=== PATIENT | female | born 1965 | race African-American/Black ===

== ENCOUNTER 2018-12-12 14:08 | Inpatient (IN) | payer OTHER ==
[2018-12-12 14:14] VITALS: BMI 24.4
--- NOTE | 2018-12-12 14:15 | PDOC ---
Rapid Medical Evaluation Time Seen by Provider: 12/12/18 14:11 Medical Evaluation: 12/12/18 14:11 CC: dizziness with headache x5 days. Pmhx- 3 CVA- denies residuals PE: left facial weakness Orders: stroke w/u Patient will proceed to ER for continued evaluation. Discharge Disposition - Diagnosis Dizziness - Referrals - Patient Instructions - Post Discharge Activity
--- NOTE | 2018-12-12 15:29 | PDOC ---
Attending Attestation - Resident Resident Name: Caden Villegas - ED Attending Attestation I have performed the following: I have examined & evaluated the patient, The case was reviewed & discussed with the resident, I agree w/resident's findings & plan, Exceptions are as noted - HPI HPI: 12/12/18 16:21 Her SC Jordan Martinez is a 53-year-old female history of prior CVA with residual left-sided weakness and migraine history here today complaining of a severe left -sided headache is also complaining of vertigo patient states that her vertigo started 5 days ago initially thought it was improved but then came back she states her symptoms are worse with turning and moving her head describes a room spinning sensation denies any nausea or vomiting no ringing no changes to her weakness which she feels is old from her prior stroke. She does report feeling generalized more fatigued and in addition feels that her speech was somewhat slurred over the last weekend 3 days prior to arrival since then her speech has improved denies any chest pain no shortness of breath no fevers no chills - Physicial Exam PE: 12/12/18 16:23 Awake alert no acute distress lungs are clear bilaterally heart is regular without any murmurs rubs or gallops abdomen is soft and nontender extremities are warm well perfused neurological strength is 4 out of 5 left upper extremity 4-5 left lower extremity right upper and lower is 5 out of 5. On my exam patient's facies are symmetric sensation is intact in her face. Sensation is mildly reduced on the left side. Speech is clear visual marcelino are intact cerebellar exam [id number] is normal alternating hand movements are normal [id number] is normal gait is normal negative Romberg patient has a positive John-Hallpike to the left with noted horizontal nystagmus. Skin is warm and dry no rash - Medical Decision Making 12/12/18 16:23 53-year-old female history of previous CVA migraines here today complaining of headache and vertigo and slurred speech with resolution of her speech difficulty. Differential includes posterior or cerebellar CVA bleed atypical migraine elect light abnormalities infection anemia plan CT head labs CBC CMP troponin EKG. We will treat her vertigo with meclizine and IV fluids was given Reglan and Tylenol for her headache. If CT is negative patient will require admission for an MRI due to her high risk with prior strokes for cell Altagracia pathology. Will consult neurology and admit patient to telemetry telemetry rule out CVA Heart Score/ECG Review #1 General ECG Interpretation: Sinus Rhythm, Normal Rate (73), Normal Intervals, No acute ischemic changes
[2018-12-12 15:40] LABS: BASO % 1.1 % (0-2.0); EOS % 0.8 % (0-4.5); HEMATOCRIT 36.1 % (32.4-45.2); HEMOGLOBIN 11.4 GM/dL (10.7-15.3); LYMPH % 41.7 % (8-40); MCH 25.3 pg (25.7-33.7); MCHC 31.5 g/dl (32.0-36.0); MEAN CELL VOLUME 80.3 fl (80-96); MEAN PLT VOLUME 9.2 fl (7.5-11.1); MONO % 7.8 % (3.8-10.2); NEUT % 48.6 % (42.8-82.8); PLATELET COUNT 289 K/MM3 (134-434); RDW 16.7 % (11.6-15.6); WHITE BLOOD COUNT 4.7 K/mm3 (4.0-10.0)
--- NOTE | 2018-12-12 15:59 | PDOC ---
History of Present Illness - General Chief Complaint: Headache Stated Complaint: R/O CVA/TIA Time Seen by Provider: 12/12/18 14:11 History Source: Patient Exam Limitations: No Limitations - History of Present Illness Initial Comments: 12/12/18 15:56 Kacey Sandy is a 53F with PMH 3x CVA (1999, 2000, 2005) and multiple TIA c /b residual L-sided weakness and not on AC 2/2 patient preference and chronic migraines not on medication presenting with 5 days of vertigo and weakness with migraine. Patient reports that for last 5 days has had room-spinning dizziness, difficulty speaking, and weakness that has progressively gotten worse, thought she simply had vertigo but then was experiencing leg weakness and difficulty walking, went to urgent care today and was referred to ED for further evaluation. Has had 3x CVA with multiple TIA in the past, confirms residual L- sided weakness in arm and leg, sometimes uses a cane to aid in walking. Not on AC because patient does not routinely take it. Says that dizziness is not something that happens to her often, presentation is unlike prior TIA/CVA and is not a typical symptom from her migraines. Has chronic history of migraines, does not take medications, once was put on triptan but caused her to have another stroke, usually just sits in the dark and waits for them to resolve. Has CARSON today consistent with previous migraines, says pain is 20/10, some light sensitivity. Denies chest pain, SOB, nausea/vomiting, abd pain, urinary sx, C/D. Past History - Past Medical History Allergies/Adverse Reactions: Allergies Allergy/AdvReac Type Severity Reaction Status Date / Time No Known Allergies Allergy Verified 12/12/18 14:14 CVA: Yes (x2 left side deficit) COPD: No - Psycho Social/Smoking Cessation Hx Smoking History: Never smoked Information on smoking cessation initiated: No Hx Alcohol Use: No Drug/Substance Use Hx: No Review of Systems - Review of Systems Able to Perform ROS?: Yes Constitutional: No: Symptoms Reported HEENTM: No: Blurred Vision, Recent change in vision, Hearing Loss, Difficulty Swallowing Respiratory: No: Cough, Shortness of Breath Cardiac (ROS): No: Chest Pain, Irregular Heart Rate, Lightheadedness, Palpitations, Syncope ABD/GI: No: Constipated, Diarrhea, Nausea, Vomiting : No: Symptoms Reported Musculoskeletal: No: Symptoms Reported Integumentary: No: Symptoms Reported Neurological: Yes: Headache, Numbness (chronic, L side), Weakness, Unsteady Gait , Dizziness. No: Seizure, Tingling, Tremors Endocrine: No: Symptoms Reported Hematologic/Lymphatic: No: Symptoms Reported All Other Systems: Reviewed and Negative *Physical Exam - Vital Signs Last Vital Signs Temp Pulse Resp BP Pulse Ox 99 F 86 18 129/57 L 100 12/12/18 14:12 12/12/18 14:12 12/12/18 14:12 12/12/18 14:12 12/12/18 14:12 - Physical Exam Comments: 12/12/18 16:58 Neurological Exam: Alert/Oriented x3 CN: - decreased sensation to L face - remaining CN grossly normal HEENT: - TMs clear bilaterally Sensation: - decreased to LUE/LLE compared to RUE/RLE - Romberg negative Motor: - 4/5 strength on L side compared to 5/5 strength on R side Reflexes: - patellar reflex intact bilaterally Cerebellar: - finger/nose normal with some cognitive processing delay - heel/red normal - no dysdiadochokinesia - gait grossly normal, unable to toe walk General Appearance: Yes: Nourished, Appropriately Dressed. No: Apparent Distress HEENT: positive: EOMI, HAIM, Normal Voice, Symmetrical, Pharynx Normal, Hearing Grossly Normal. negative: Scleral Icterus (R), Scleral Icterus (L), Muffled/ Hoarse voice Neck: positive: Trachea midline, Supple. negative: Tender, Lymphadenopathy (R) , Lymphadenopathy (L) Respiratory/Chest: positive: Lungs Clear, Normal Breath Sounds. negative: Chest Tender, Respiratory Distress, Accessory Muscle Use, Crackles, Rales, Rhonchi, Stridor, Wheezing, Hyperresonant Cardiovascular: positive: Regular Rhythm, Regular Rate. negative: Murmur Gastrointestinal/Abdominal: positive: Normal Bowel Sounds, Flat, Soft. negative : Tender, Guarding, Rebound Musculoskeletal: positive: Normal Inspection. negative: CVA Tenderness Extremity: positive: Normal Capillary Refill, Normal Inspection, Normal Range of Motion. 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, Fully Oriented, Alert, Normal Mood/ Affect, Normal Response ED Treatment Course - LABORATORY CBC & Chemistry Diagram: 12/12/18 15:00 12/12/18 15:00 - ADDITIONAL ORDERS Additional order review: 12/12/18 15:00 RBC 4.50 MCV 80.3 MCHC 31.5 L RDW 16.7 H MPV 9.2 Neutrophils % 48.6 Lymphocytes % 41.7 H Monocytes % 7.8 Eosinophils % 0.8 Basophils % 1.1 Medical Decision Making - Medical Decision Making 12/12/18 15:56 Kacey Sandy is a 53F with PMH 3x CVA (1999, 2000, 2005) and multiple TIA c /b residual L-sided weakness and not on AC 2/2 patient preference and chronic migraines not on medication presenting with 5 days of vertigo and weakness with migraine. Patient has known history of CVA and TIA and is not on AC. Presents today with numbness and weakness to left face/arm/leg which patient says is consistent with prior deficits, NIHSS 3 for L arm/leg drift and sensory deficit, but no prior NIHSS on record. High concern for posterior CVA given dizziness vs. repeat R MCA CVA vs. Kurtz Palsy vs. complex migraine. Unclear why patient has so many CVA, no cardiac history, no arrhythmia notable on exam. Will need inpatient admission for further neuro evaluation of dizziness, recommend cardiac ECHO for PFO vs. eval for underlying hypercoagulable hematologic disorder. Evaluated via: CMP CBC CP serum preg coags ECG CXR CT head Giving 4mg reglan, 1L NS IVF, 1g Ofirmev for CARSON control. ECG shows NSR with HR 73, QRS 76, QTc 431. CT scan obtained by triage for r/o CVA, report negative for CVA. No acute pathology on CXR. 12/12/18 16:52 Discussed case with isabel Crook to be admitted to stroke/tele for further cardiac/stroke r/o. Admitting Dr. Moreau to evaluate for neurology consult need. Discharge - Discharge Information Problems reviewed: Yes Clinical Impression/Diagnosis: Dizziness Condition: Stable - Admission Yes - Follow up/Referral - Patient Discharge Instructions - Post Discharge Activity NIH Stroke Scale - Last Known Well Date/Time & Onset Date Last Known Well: 12/07/18 Time Last Known Well: 00:00 - Initial Evaluation Level of consciousness: Alert Ask patient the month and their age: Answers both correctly Ask patient to open & close eyes; make fist and let go: Obeys both correctly Best gaze (horizontal eye movement): Normal Visual field testing: No visual field loss Facial paresis (Show teeth/raise eyebrows/close eyes tight): Normal symmetrical movement Motor Function: Left Arm: Drift Motor Function: Right Arm: Normal (extends arm 90 (or 45) degrees for 10 seconds without drift Motor Function: Left Leg: Drift Motor Function: Right Leg: Normal (extends leg 30 degrees for 5 seconds without drift) Limb Ataxia: No ataxia Sensory(Use pinprick test arms,legs,trunk,face/side to side): Mild to moderate decrease in sensation (L-sided) Best language (Describe picture, name items, read sentences): No Aphasia Dysarthria (read several words): Normal articulation Extinction and Inattention: No abnormality - Total Score NIH Stroke Scale Score: 3
[2018-12-12 16:04] LABS: ALBUMIN 3.9 g/dl (3.4-5.0); BILIRUBIN,TOTAL 0.6 mg/dL (0.2-1); CALCIUM 9.3 mg/dL (8.5-10.1); CREATININE 0.6 mg/dL (0.55-1.3); POTASSIUM 4.1 mmol/L (3.5-5.1); TOT PROT 7.4 g/dl (6.4-8.2)
[2018-12-12] MEDS ORDERED: MECLIZINE HCL 25 MG TABLET (FP) PO ONE (16:19)
[2018-12-12] MEDS ORDERED: SODIUM CHLORIDE 1,000 ML IV STA (16:21)
[2018-12-12] MEDS ORDERED: ACETAMINOPHEN 1000 MG/100 ML VIAL (NON FORMULARY) IVPB ONE (16:21)
[2018-12-12] MEDS ORDERED: METOCLOPRAMIDE HCL INJECTION 10 MG/2 ML VIAL IVPB ONE (16:21)
[2018-12-12] MEDS ORDERED: METOCLOPRAMIDE HCL INJECTION 10 MG/2 ML VIAL ONE (16:25)
[2018-12-12] MEDS ORDERED: MECLIZINE HCL 25 MG TABLET (FP) ONE (16:26)
[2018-12-12] MEDS ORDERED: ACETAMINOPHEN INJECTION 100 ML IVPB ONE (16:26)
[2018-12-12 16:38] LABS: INR 1.04 (0.83-1.09); PROTHROMBIN TIME (PATIENT) 12.3 SEC (9.7-13.0)
--- NOTE | 2018-12-12 16:42 | PDOC ---
NIH Stroke Scale - Last Known Well Date/Time & Onset Date Last Known Well: 12/07/18 - Initial Evaluation Level of consciousness: Alert Ask patient the month and their age: Answers both correctly Ask patient to open & close eyes; make fist and let go: Obeys both correctly Best gaze (horizontal eye movement): Normal Visual field testing: No visual field loss Facial paresis (Show teeth/raise eyebrows/close eyes tight): Normal symmetrical movement Motor Function: Left Arm: Drift Motor Function: Right Arm: Normal (extends arm 90 (or 45) degrees for 10 seconds without drift Motor Function: Left Leg: Drift Motor Function: Right Leg: Normal (extends leg 30 degrees for 5 seconds without drift) Limb Ataxia: No ataxia Sensory(Use pinprick test arms,legs,trunk,face/side to side): Mild to moderate decrease in sensation Best language (Describe picture, name items, read sentences): No Aphasia Dysarthria (read several words): Normal articulation Extinction and Inattention: No abnormality - Total Score NIH Stroke Scale Score: 3
--- NOTE | 2018-12-12 19:53 | HP ---
Admitting History and Physical - Primary Care Physician PCP: Jesús Moreau - Admission History of Present Illness: Her SC Jordan Martinez is a 53-year-old female history of prior CVA with residual left-sided weakness and migraine history here today complaining of a severe left -sided headache is also complaining of vertigo patient states that her vertigo started 5 days ago initially thought it was improved but then came back she states her symptoms are worse with turning and moving her head describes a room spinning sensation denies any nausea or vomiting no ringing no changes to her weakness which she feels is old from her prior stroke. She does report feeling generalized more fatigued and in addition feels that her speech was somewhat slurred over the last weekend 3 days prior to arrival since then her speech has improved denies any chest pain no shortness of breath no fevers no chills - Smoking History Smoking history: Never smoked - Alcohol/Substance Use Hx Alcohol Use: No Home Medications - Allergies Allergies/Adverse Reactions: Allergies Allergy/AdvReac Type Severity Reaction Status Date / Time No Known Allergies Allergy Verified 12/12/18 14:14 - Home Medications Home Medications: Ambulatory Orders NK [No Known Home Medication] 12/12/18 Physical Examination Vital Signs: Vital Signs Temperature 99 F 12/12/18 14:12 Pulse Rate 70 12/12/18 17:46 Respiratory Rate 16 12/12/18 17:46 Blood Pressure 130/70 12/12/18 17:46 O2 Sat by Pulse Oximetry (%) 100 12/12/18 17:46 Constitutional: Yes: No Distress HENT: Yes: Atraumatic Neck: Yes: Supple Cardiovascular: Yes: Regular Rate and Rhythm Respiratory: Yes: CTA Bilaterally Gastrointestinal: Yes: Normal Bowel Sounds Extremities: Yes: WNL Neurological: Yes: Alert, Oriented Labs: CBC, BMP 12/12/18 15:00 12/12/18 15:00 Problem List - Problems (1) Vertigo Assessment/Plan: on meclizine neuro consult Code(s): R42 - DIZZINESS AND GIDDINESS Assessment/Plan Laboratory Tests 12/12/18 12/12/18 12/12/18 14:00 15:00 15:00 WBC 4.7 RBC 4.50 Hgb 11.4 Hct 36.1 MCV 80.3 MCH 25.3 L MCHC 31.5 L RDW 16.7 H Plt Count 289 MPV 9.2 Absolute Neuts (auto) 2.3 Neutrophils % 48.6 Lymphocytes % 41.7 H Monocytes % 7.8 Eosinophils % 0.8 Basophils % 1.1 Nucleated RBC % 0 PT with INR INR PTT (Actin FS) Sodium Potassium Chloride Carbon Dioxide Anion Gap BUN Creatinine Est GFR (CKD-EPI)AfAm Est GFR (CKD-EPI)NonAf Random Glucose Calcium Total Bilirubin AST ALT Alkaline Phosphatase Creatine Kinase 116 Troponin I < 0.02 Total Protein Albumin Serum , Qual Negative Blood Type Antibody Screen 12/12/18 12/12/18 12/12/18 15:00 15:00 15:06 WBC RBC Hgb Hct MCV MCH MCHC RDW Plt Count MPV Absolute Neuts (auto) Neutrophils % Lymphocytes % Monocytes % Eosinophils % Basophils % Nucleated RBC % PT with INR 12.30 INR 1.04 PTT (Actin FS) 45.0 H Sodium 139 Potassium 4.1 Chloride 108 H Carbon Dioxide 27 Anion Gap 5 L BUN 12.0 Creatinine 0.6 Est GFR (CKD-EPI)AfAm 122.32 Est GFR (CKD-EPI)NonAf 105.54 Random Glucose 92 Calcium 9.3 Total Bilirubin 0.6 AST 20 ALT 19 Alkaline Phosphatase 104 Creatine Kinase Troponin I Total Protein 7.4 Albumin 3.9 Serum , Qual Blood Type O POSITIVE Antibody Screen Negative
[2018-12-12] MEDS ORDERED: MECLIZINE HCL 12.5 MG TABLET PO PRN (19:58)
[2018-12-12 21:11] LABS: EPI CELLS 1.2 /HPF (0-5/HPF); HYALINE CASTS 0 /lpf (0-8); PH,URINE 5.5 (5.0-8.0); URINE APPEARANCE CLEAR; URINE BACTERIA 2.6 /hpf (NEGATIVE); URINE BILIRUBIN NEGATIVE (NEGATIVE); URINE COLOR YELLOW; URINE GLUCOSE (UA) NEGATIVE (NEGATIVE); URINE KETONE NEGATIVE (NEGATIVE); URINE LEUK ESTERASE TRACE (NEGATIVE); URINE NITRITE NEGATIVE (NEGATIVE); URINE PROTEIN NEGATIVE (NEGATIVE); URINE RBC 1 /hpf (0-4); URINE UROBILINOGEN 0.2 mg/dL (0.2-1.0); URINE WBC 2 /hpf (0-5)
[2018-12-12 21:21] VITALS: BP 114/73; PULSE 63; TEMP 97.8
--- NOTE | 2018-12-13 02:25 | HOSP ---
Subjective - Review of Symptoms Events since last encounter: 53-year-old female history of prior CVA with residual left-sided weakness and migraine history was here in ED today for complaining of a severe left-sided headache is also complaining of vertigo. @1: 56 informed by RN patient eloped, with IV line in place, [employer] was called, went to listed address turned out it was commercial lot. No answer on emergency contact. Physical Examination Vital Signs:
--- NOTE | 2018-12-13 10:00 | CON.NEURO ---
Consult - History of Present Illness History of Present Illness: 53-year-old female history of prior CVA with residual left-sided weakness and migraine history here today complaining of a severe left-sided headache is also complaining of vertigo patient states that her vertigo started 5 days ago initially thought it was improved but then came back she states her symptoms are worse with turning and moving her head describes a room spinning sensation denies any nausea or vomiting no ringing no changes to her weakness which she feels is old from her prior stroke. She does report feeling generalized more fatigued and in addition feels that her speech was somewhat slurred over the last weekend 3 days prior to arrival since then her speech has improved denies any chest pain no shortness of breath no fevers no chills. CT HD : no clear acute on chronic infract to my eye, WNL, - Alcohol/Substance Use Hx Alcohol Use: No - Smoking History Smoking history: Never smoked Home Medications - Allergies Allergies/Adverse Reactions: Allergies Allergy/AdvReac Type Severity Reaction Status Date / Time No Known Allergies Allergy Verified 12/12/18 14:14 - Home Medications Home Medications: Ambulatory Orders NK [No Known Home Medication] 12/12/18 Physical Exam-Neuro Vital Signs: Vital Signs Temperature 97.8 F 12/12/18 21:10 Pulse Rate 63 12/12/18 21:10 Respiratory Rate 20 12/12/18 21:10 Blood Pressure 114/73 12/12/18 21:10 O2 Sat by Pulse Oximetry (%) 98 12/12/18 21:10 Labs: CBC, BMP 12/12/18 15:00 12/12/18 15:00 INR, PTT INR 1.04 (0.83-1.09) 12/12/18 15:06 Assessment/Plan 53-year-old female history of prior CVA with residual left-sided weakness and migraine history here today complaining of a severe left-sided headache is also complaining of vertigo patient states that her vertigo started 5 days ago initially thought it was improved but then came back she states her symptoms are worse with turning and moving her head describes a room spinning sensation denies any nausea or vomiting no ringing no changes to her weakness which she feels is old from her prior stroke. She does report feeling generalized more fatigued and in addition feels that her speech was somewhat slurred over the last weekend 3 days prior to arrival since then her speech has improved denies any chest pain no shortness of breath no fevers no chills. CT HD : no clear acute on chronic infract to my eye, WNL,
--- NOTE | 2018-12-13 11:51 | EKG ---
Test Reason : Blood Pressure : / mmHG Vent. Rate : 073 BPM Atrial Rate : 073 BPM P-R Int : 136 ms QRS Dur : 076 ms QT Int : 392 ms P-R-T Axes : 062 030 037 degrees QTc Int : 431 ms NORMAL SINUS RHYTHM POSSIBLE LEFT ATRIAL ENLARGEMENT BORDERLINE ECG NO PREVIOUS ECGS AVAILABLE Confirmed by JOSE DUTTON, TAZ ([id number]) on 12/13/2018 11:50:32 AM Referred By: Confirmed By:TAZ GARCIA MD
--- NOTE | 2018-12-13 18:42 | DS ---
Physical Examination Vital Signs: Vital Signs Temperature 97.8 F 12/12/18 21:10 Pulse Rate 63 12/12/18 21:10 Respiratory Rate 20 12/12/18 21:10 Blood Pressure 114/73 12/12/18 21:10 O2 Sat by Pulse Oximetry (%) 98 12/12/18 21:10 Labs: CBC, BMP 12/12/18 15:00 12/12/18 15:00 Discharge Summary Problems reviewed: Yes Reason For Visit: DIZZINESS HISTORY CEREBROVASCULAR ACCIDENT Condition: Fair - Instructions Disposition: ELOPED - Home Medications Comprehensive Discharge Medication List: Ambulatory Orders NK [No Known Home Medication] 12/12/18 LAURY
== END 2018-12-13 02:14 | disposition left against medical advice (07) | DRG 149 ==
LOC: JER 14:08 → JERBED 16:50
PROVIDERS: ADMIT Internal Medicine; ATTEND Internal Medicine
DX: R42 Dizziness and giddiness (principal); I69.352 Hemiplegia and hemiparesis following cerebral infarction affecting left dominant side; G43.909 Migraine, unspecified, not intractable, without status migrainosus
CPT/HCPCS: 36415; 70450-TC; 71045-TC-FY; 80053; 81003; 82550; 84484; 84703; 85025; 85610; 85730; 86850; 86900; 86901; 87086; 93005; 93010; 99285-25; J0131; J7030